=== PATIENT | female | born 1975 | race Caucasian/White ===

== ENCOUNTER 2016-11-28 17:01 | Emergency (ER) | payer BC ==
[2016-11-28 17:32] VITALS: BP 131/82
--- NOTE | 2016-11-28 18:49 | ED ---
Respiratory - HPI Summary HPI Summary: cough and congestion for the last week which has improved. She started having a sore throat yesterday. - History of Current Complaint Chief Complaint: UCRespiratory Stated Complaint: SORE THROAT Time Seen by Provider: 11/28/16 18:37 Hx Obtained From: Patient Onset/Duration: Gradual Onset, Lasting Days Timing: Constant Initial Severity: Moderate Current Severity: Moderate - cough and congestion has improved. Character: Cough (Nonproductive) Sputum Amount: None Sputum Color: White Aggravating Factor(s): Deep Breaths, Recumbent Position Alleviating Factor(s): OTC Medications Associated Signs and Symptoms: URI, Nasal Congestion - Allergy/Home Medications Allergies/Adverse Reactions: Allergies Allergy/AdvReac Type Severity Reaction Status Date / Time No Known Allergies Allergy Verified 11/28/16 17:28 Home Medications: Home Medications Pseudoephedrine TAB* [Sudafed TAB*] 30 - 60 mg PO Q6H PRN 11/28/16 [History Confirmed 11/28/16] PMH/Surg Hx/FS Hx/Imm Hx Previously Healthy: No - smoker. - Surgical History Surgery Procedure, Year, and Place: Hysterectomy, 2016, [facility]; Cholecystectomy , 2002, [place] Infectious Disease History: No Infectious Disease History: Denies: Traveled Outside the [place] in Last 30 Days - Family History Known Family History: Positive: Other - no related lung disease. - Social History Alcohol Use: None Substance Use Type: Reports: None Smoking Status (MU): Light Every Day Tobacco Smoker Amount Used/How Often: 1/5 PPD Length of Time of Smoking/Using Tobacco: Since Age 13 Review of Systems Positive: Sore Throat Positive: Cough All Other Systems Reviewed And Are Negative: Yes Physical Exam Triage Information Reviewed: Yes Vital Signs On Initial Exam: Initial Vitals Temp Pulse Resp BP Pulse Ox 99.3 F 82 16 131/82 100 11/28/16 17:26 11/28/16 17:26 11/28/16 17:26 11/28/16 17:26 11/28/16 17:26 Vital Signs Reviewed: Yes Appearance: Positive: Well-Appearing, No Pain Distress, Well-Nourished Skin: Positive: Warm Eyes: Positive: Normal ENT: Positive: Normal ENT inspection Neck: Positive: Supple, Nontender, No Lymphadenopathy Respiratory/Lung Sounds: Positive: Clear to Auscultation, Breath Sounds Present , Decreased Breath Sounds, Rales Cardiovascular: Positive: Normal, RRR Abdomen Description: Positive: Nontender, No Organomegaly, Soft Musculoskeletal: Positive: Normal, Strength/ROM Intact Neurological: Positive: Normal, Sensory/Motor Intact, Alert, Oriented to Person Place, Time Psychiatric: Positive: Normal, Affect/Mood Appropriate Diagnostics - Vital Signs Vital Signs Temp Pulse Resp BP Pulse Ox 11/28/16 17:26 99.3 F 82 16 131/82 100 - Laboratory Lab Results: Lab Results 11/28/16 Range/Units 17:37 Group A Strep Rapid Negative (Negative) Lab Statement: Any lab studies that have been ordered have been reviewed, and results considered in the medical decision making process. Disposition - Diagnoses Provider Diagnoses: Sore throat (viral), Laryngitis Discharge - Discharge Plan Condition: Good Disposition: HOME Patient Education Materials: Pharyngitis (ED), Laryngitis (ED) Referrals: No Primary Care Phys,NOPCP [Primary Care Provider] - Additional Instructions: return for any worsening.
== END 2016-11-28 18:46 | disposition home or self-care (01) ==
LOC: UCCORT 17:01
DX: J02.9 Acute pharyngitis, unspecified (principal); J04.0 Acute laryngitis; F17.210 Nicotine dependence, cigarettes, uncomplicated
CPT/HCPCS: 87651; 99201; G0463